=== PATIENT | female | born 1980 | race African-American/Black ===

== ENCOUNTER 2021-06-12 07:39 | Emergency (ER) | payer MEDICAID ==
[~2021-06-12] VITALS: Ht 167.6 cm; Wt 90.0 kg
[~2021-06-12 07:39] MED LIST: ALBU05 NEB
[2021-06-12 10:00] VITALS: BP 145/90
== END 2021-06-12 10:05 | disposition home or self-care (01) ==
LOC: ER 07:50
DX: R06.89 Other abnormalities of breathing (principal); J45.901 Unspecified asthma with (acute) exacerbation; Z98.890 Other specified postprocedural states
CPT/HCPCS: 99283